=== PATIENT | female | born 1990 | race Caucasian/White ===

== ENCOUNTER 2018-11-12 20:03 | Inpatient (IN) | payer MEDICAID ==
[~2018-11-12] VITALS: Ht 154.9 cm; Wt 92.7 kg
[2018-11-12] MEDS ORDERED: PREN-93 PO (20:16)
[2018-11-12 20:17] VITALS: BP 119/60; PULSE 75; RESP 20; Ht 154.9 cm; Wt 92.7 kg
[2018-11-12] MEDS ORDERED: LACTATED RINGER'S 1,000 ML IV PRN (20:23)
--- NOTE | 2018-11-12 20:29 | TRIAGE ---
OB Triage Datetime Report Generated by CPN: 11/12/2018 20:28 Datetime: 11/12/2018 20:15 Vaginal Exam Dilatation (cms): 4.5 Membrane Status: Intact Datetime: 11/12/2018 20:06 Pain Assessment Pain Scale: 7 Pain Presence: Intermittent Pain Type: Contraction Pain Location: Abdomen; Back Pain Goal: 7 Pain Relief Measures: Comfort Measures Pain Assessment Comments: states pain is tolerable Datetime: 11/12/2018 20:00 Assessment Type: Triage Maternal Assessment Level of Consciousness: Keenly Alert, Responsive DTR's/Clonus: DTRs 2+; No Clonus Headache: Denies Blurred Vision: No Respiratory Effort: Unlabored; Regular Rhythm; Equal Expansion Breath Sounds, Left: Clear and Equal Breath Sounds, Right: Clear and Equal Nausea/Vomiting: Denies RUQ Epigastric Pain: Denies Lower Extremities Edema: Bilateral Lower Extremities Degree: 1+ Upper Extremities Edema: None Degree: None Facial Edema: None Fall Risk Assessment History of Falling: (0) No Secondary Diagnosis: (0) No Ambulatory Aid: (0) Bedrest/Nurse Assist IV Therapy: (0) No Gait: (0) Normal/Bedrest/Immobile Mental Status: (0) Oriented to Own Ability Fall Score: 0 Fall Risk Score Definition: No Risk: No action required Datetime: 11/12/2018 19:57 Time of Arrival: 11/12/2018 19:54 EGA: 38.1 Arrived By: Ambulatory Arrived From: Home Chief Complaint: UCS, SPOTTING Movement: Decreased Contractions: Regular Contractions: 5-7 MIN Rupture of Membranes: Denies Vaginal Bleeding: None Vaginal Discharge: Denies Recent Sexual Intercouse: Denies Abdominal Trauma: Not Applicable Patient Complaints: Contractions Time Provider Notified: 11/12/2018 20:23 Provider Notified: JEANE Initial Plan: ROBERTO JACKSON
[2018-11-12] MEDS ORDERED: BUTORPHANOL 2 MG INJ IV PRN (20:30)
[2018-11-12] MEDS ORDERED: OXYTOCIN 30 UNITS/LR 500 ML IV SCH ×2 (20:30)
[2018-11-12] MEDS ORDERED: CARBOPROST 250 MCG INJ IM PRN (20:30)
[2018-11-12] MEDS ORDERED: METHYLERGONOVINE 0.2 MG INJ IM PRN (20:30)
[2018-11-12] MEDS ORDERED: IBUPROFEN 600 MG TAB PO PRN (20:30)
[2018-11-12] MEDS ORDERED: OXYTOCIN 30 UNITS/LR 500 ML IV PRN (20:30)
[2018-11-12] MEDS ORDERED: LIDOCAINE 1% (MPF) 30 ML INJ INJ PRN (20:30)
[2018-11-12] MEDS ORDERED: MISOPROSTOL 200 MCG TAB PR PRN (20:30)
--- NOTE | 2018-11-12 20:34 | TRIAGE ---
OB Triage Datetime Report Generated by CPN: 11/12/2018 20:34 Datetime: 11/12/2018 20:30 Frequency: 1.5-5 Monitor Mode: External Duration (sec)2399: 70-100 Quality: Moderate Pattern: Normal: <= 5 Contractions in 10 Minutes Resting Tone [place]: Relaxed FHR Baseline Rate: 150 Monitor Mode: External US Variability: Moderate 6-25 bpm Accelerations: 15X15 Decelerations: Late Category: Category II
[2018-11-12] MEDS: LACTATED RINGER'S 1,000 ML IV SCH (20:45)
[2018-11-12] MEDS ORDERED: FENTAnyl 2MCG/ML-ROPIV 0.2% 100 ML ONE (23:54)
--- NOTE | 2018-11-13 00:09 | PREAC ---
Date/Time of Note Date/Time of Note DATE: 11/13/18 TIME: 00:07 Anesthesia Eval and Record Evaluation Time Pre-Procedure Interview DATE: 11/12/18 TIME: 23:20 Age 28 Sex female NPO: 8 hrs Preoperative diagnosis iup @ 38 wks., , labor Planned procedure martha Past Medical History Past Medical History: Includes : : (2), Para: (0), Gestational age: (38 wks.) Surgery & Anesthesia Issues No known issue Meds Anticoagulation: No Beta Doris within 24 hr: No Reason Beta Doris not given: Pt. not on B-Doris Reported Medications Vit No.124/Iron/FA ( Vitamin Tablet) 1 Each Tablet, 1 EACH PO DAILY, TAB 11/12/18 Current Medications Lactated Ringer's 1,000 ml @ 125 mls/hr Q8H IV Last administered on 11/12/18at 20:45; Admin Dose 125 MLS/HR; Start 11/12/18 at 20:23 Butorphanol Tartrate (Stadol) 2 mg Q2H PRN IV .PAIN SCALE 6-10; Start 11/12/18 at 20:30 Lidocaine (Xylocaine 1% (Mpf)) 30 ml ONCE PRN INJ .EPISIOTOMY; Start 11/12/18 at 20:30 Oxytocin/Lactated Ringer's 500 ml @ 500 mls/hr ONCE POST IV ; Start 11/12/18 at 20:30 Oxytocin/Lactated Ringer's 500 ml @ 125 mls/hr POST IV ; Start 11/12/18 at 20:30 Ibuprofen (Motrin) 600 mg ONCE PRN PO .PAIN 1-5; Start 11/12/18 at 20:30 Lactated Ringer's 1,000 ml @ 2,000 mls/hr Q30M PRN IV .ANESTHESIA Last administered on 11/12/18at 22:48; Admin Dose 2,000 MLS/HR; Start 11/12/18 at 20:23 Oxytocin/Lactated Ringer's 500 ml @ 0 mls/hr ONCE PRN IV .VAGINAL BLEEDING; Start 11/12/18 at 20:30 Methylergonovine Maleate (Methergine) 0.2 mg ONCE PRN IM .VAGINAL BLEEDING; Start 11/12/18 at 20:30 Carboprost Tromethamine (Hemabate) 250 mcg ONCE PRN IM .VAGINAL BLEEDING; Start 11/12/18 at 20:30 Misoprostol (Cytotec) 1,000 mcg ONCE PRN ND .VAGINAL BLEEDING; Start 11/12/18 at 20:30 Meds reviewed: Yes Allergies Coded Allergies: No Known Allergy (Unverified , 11/12/18) Allergies Reviewed: Yes Labs/Studies Labs Reviewed: Reviewed by anesthesiologist Result Diagram: 11/12/18 2030 Laboratory Tests 11/12/18 20:30 Blood Bank Test 11/12/18 20:30 Antibody Screen NEGATIVE Blood Type O POSITIVE Rh Immune Globulin Candidate NO test: Positive Studies: ECG (n/a), CXR (n/a) Pre-procedure Exam Last vitals Vital Signs Date Temp Pulse Resp B/P (MAP) Pulse Ox O2 O2 Flow FiO2 Time Delivery Rate 11/12/18 98.0 75 20 119/60 Room Air 20:17 (79) Airway: Adequate mouth opening, Adequate thyromental dist Mallampati: Mallampati II Teeth: Normal Lung: Normal Heart: Normal ASA Physical Status ASA physical status: 2 Emergency: E Planned Anesthetic Neuraxial: Epidural Planned Pain Management Epidural, Parenteral pain med, Local by surgeon Pre-operative Attestations Prior to commencing anesthesia and surgery, the patient was re-evaluated, there was verification of: *The patient's identity *The results of appropriate recent lab work and preoperative vital signs *The above evaluation not changing prior to induction *Anesthetic plan, risk benefits, alternative and complications discussed with patient/family; questions answered; patient/family understands, accepts and wishes to proceed. Code Clerk used DONALDO FINN MD Nov 13, 2018 00:08
[2018-11-13] MEDS ORDERED: FENTAnyl 2MCG/ML-ROPIV 0.2% 100 ML BAG EPI SCH (00:30)
[2018-11-13] MEDS ORDERED: ONDANSETRON 4 MG INJ IV PRN (00:30)
[2018-11-13] MEDS ORDERED: NALOXONE (0.4 MG/ML) INJ IV PRN (00:30)
[2018-11-13] MEDS: LACTATED RINGER'S 1,000 ML IV SCH ×2 (01:47→08:03)
--- NOTE | 2018-11-13 08:55 | HP ---
Date/Time of Note Date/Time of Note DATE: 11/13/18 TIME: 08:54 OB - History Hx of Present Free Text/Dictation term iin activve labor : 1 Para: 0 Ultrasounds: Normal mid trimester US Obstetrical Complications: None Medical Complications: None Past Family/Social History * Past Medical, Surgical, Family and Obstetric Histories reviewed from chart. OB Admission Exam Vital Signs Vital Signs Vital Signs Date Temp Pulse Resp B/P (MAP) Pulse Ox O2 O2 Flow FiO2 Time Delivery Rate 11/12/18 98.0 75 20 119/60 Room Air 20:17 (79) Physical Exam HEENT: WNL Heart: Rhythm Normal Lungs: Clear, Equal Abdomen: WNL Extremities: Normal Reflexes: Normal Cervical Dilatation: 10cm Effacement: 100% Station: +3 Membranes: Ruptured Amniotic Fluid: Thick Meconium Heart Rate: 130's Accelerations: Accelerations Present Decelerations: No Decelerations Varibility: Moderate Contractions on Admission: 6-10 Minutes Apart Intensity: Moderate Last 72 hours Lab Results CBC & BMP 11/12/18 20:30 OB Assessment/Plan Reason for admission: active labor Plan: Expectant Management KATELYN CHING MD Nov 13, 2018 08:55
--- NOTE | 2018-11-13 08:56 | LDN ---
Date/Time of Note Date/Time of Note DATE: 11/13/18 TIME: 08:55 Delivery Summary NSD W.O COMPLIACTIONS Placenta Delivered: Spontaneously Meconium: none, Thick Episiotomy: No Perineal laceration: 1 Anesthesia type: Epidural Estimated blood loss: 300 Sponge & Needle done & correct: Yes All needle counts correct: Yes Any foreign bodies felt in the: No KATELYN CHING MD Nov 13, 2018 08:56
[2018-11-13] MEDS ORDERED: OXYTOCIN 30 UNITS/LR 500 ML IV SCH (11:09)
[2018-11-13 11:10] VITALS: BP 112/77; PULSE 82; RESP 18
[2018-11-13] MEDS: LACTATED RINGER'S 1,000 ML IV* SCH ×2 (11:10→21:09)
[2018-11-13] MEDS: IBUPROFEN 800 MG TAB PO SCH ×3 (11:25→23:40)
[2018-11-13] MEDS: LANOLIN HPA 1 PKT TOP PRN (11:27)
[2018-11-13] MEDS ORDERED: WITCH HAZEL/GLYCERIN PAD PR PRN (11:30)
[2018-11-13] MEDS ORDERED: SENNA/DOCUSATE NA (8.6MG/50MG) TAB PO PRN (11:30)
[2018-11-13] MEDS ORDERED: ZOLPIDEM 5 MG TAB PO PRN (11:30)
[2018-11-13] MEDS ORDERED: MAGNESIUM HYDROXIDE 30ML CUP PO PRN (11:30)
[2018-11-13] MEDS ORDERED: MISOPROSTOL 200 MCG TAB PR PRN (11:30)
[2018-11-13] MEDS ORDERED: OXYTOCIN 30 UNITS/LR 500 ML IV PRN (11:30)
[2018-11-13] MEDS ORDERED: DIPHENHYDRAMINE 25 MG CAP PO PRN (11:30)
[2018-11-13] MEDS ORDERED: BENZOCAINE 20% 56 ML SPRAY TOP PRN (11:30)
[2018-11-13] MEDS ORDERED: ACETAMINOPHEN 325 MG TAB PO PRN (11:30)
[2018-11-13] MEDS ORDERED: CARBOPROST 250 MCG INJ IM PRN (11:30)
[2018-11-13] MEDS ORDERED: METHYLERGONOVINE 0.2 MG INJ IM PRN (11:30)
[2018-11-13 12:10] VITALS: BP 110/76; PULSE 78; RESP 20
[2018-11-13 15:19] VITALS: BP 114/68; PULSE 80; RESP 18
[2018-11-13 19:50] VITALS: BP 94/50; PULSE 61; RESP 19
[2018-11-14 03:40] VITALS: BP 86/55; PULSE 70; RESP 20
[2018-11-14] MEDS: IBUPROFEN 800 MG TAB PO SCH ×4 (05:29→23:49)
[2018-11-14 08:04] VITALS: BP 97/56; PULSE 70; RESP 18
[2018-11-14] MEDS: HYDROCODONE/APAP (5/325) TAB PO PRN (08:33)
--- NOTE | 2018-11-14 12:54 | DS ---
Date/Time of Note Date/Time of Note DATE: 11/14/18 TIME: 12:53 Discharge Summary Admission/Discharge Info Admit Date/Time Nov 12, 2018 at 20:15 Discharge Date/Time Discharge Diagnosis term Patient Condition: Stable Hospital Course unremarkable Home Meds Reported Medications Vit No.124/Iron/FA ( Vitamin Tablet) 1 Each Tablet, 1 EACH PO DAILY, TAB 11/12/18 Primary Care Provider Care Physician No Primary Pending Labs Laboratory Tests Test 11/14/18 07:10 11/14/18 08:00 Lab Scanned Report [facility] [id number] White Blood Count 15.2 10^3/ul (4.8-10.8) Red Blood Count 3.44 10^6/ul (4.20-5.40) Hemoglobin 10.5 g/dl (12.0-16.0) Hematocrit 31.8 % (37.0-47.0) Mean Corpuscular Volume 92.4 fl (82.0-101.0) Mean Corpuscular Hemoglobin 30.5 pg (29.0-33.0) Mean Corpuscular 33.0 g/dl (32.0-37.0) Hemoglobin Concent Red Cell Distribution Width 14.8 % (11.5-14.5) Platelet Count 152 10^3/UL (140-415) Mean Platelet Volume 13.3 fl (7.4-10.4) Immature Granulocytes % 0.500 % (0.001-0.429) Neutrophils % 75.7 % (39.0-77.0) Lymphocytes % 15.2 % (15.0-51.0) Monocytes % 5.9 % (0.0-11.0) Eosinophils % 2.3 % (0.0-7.0) Basophils % 0.4 % (0.0-2.0) Nucleated Red Blood Cells % 0.0 /100WBC (0.0-0.0) Immature Granulocytes # 0.080 10^3/ul (0.0-0.031) Neutrophils # 11.5 10^3/ul (1.6-7.5) Lymphocytes # 2.3 10^3/ul (0.8-2.9) Monocytes # 0.9 10^3/ul (0.3-0.9) Eosinophils # 0.4 10^3/ul (0.0-0.5) Basophils # 0.1 10^3/ul (0.0-0.1) Nucleated Red Blood Cells # 0.0 10^3/ul (0.0-0.0) KATELYN CHING MD Nov 14, 2018 12:54
[2018-11-14 16:41] VITALS: BP 90/60; PULSE 70; RESP 18
[2018-11-14 20:00] VITALS: BP 116/66; PULSE 89; RESP 18
[2018-11-14] MEDS: LANOLIN HPA 1 PKT TOP PRN (21:03)
[2018-11-15 04:00] VITALS: BP 92/55; PULSE 66; RESP 16
[2018-11-15] MEDS: HYDROCODONE/APAP (5/325) TAB PO PRN (04:37)
[2018-11-15] MEDS: IBUPROFEN 800 MG TAB PO SCH ×2 (05:49→11:56)
[2018-11-15 08:00] VITALS: BP 116/67; PULSE 81; RESP 16
[2018-11-15] MEDS ORDERED: DIPHTH/TET/ACEL PERTUSS (ADULT) 0.5 ML VIAL IM* ONE (09:00)
[2018-11-15] MEDS ORDERED: VARICELLA VACCINE LIVE/PF 1,350 UNIT/0.5 ML ML SC* ONE (09:00)
[2018-11-15] MEDS ORDERED: MEASLES,MUMPS,RUBELLA VACCINE INJ SC* ONE (09:00)
--- NOTE | 2018-11-16 15:53 | DELSUM ---
Delivery Summary A-C Datetime Report Generated by CPN: 11/16/2018 15:52 DELIVERY PERSONNEL Concrete Vibrator Operator: Vernon, Nicole MATERNAL INFORMATION Delivery Anesthesia: Epidural Medications in Delivery: pitocin Delivery QBL (ml): 300 Placenta Cultured: No Maternal Complications: Other LABOR SUMMARY EDC: 11/25/2018 00:00 No. Babies in Womb: 1 Attempted: No Labor Anesthesia: Epidural LABOR INFORMATION Reason for Induction: Not Applicable Onset of Labor: 11/12/2018 11:00 Complete Dilatation: 11/13/2018 08:04 Group B Beta Strep: Negative Antibiotics # of Doses: 0 Steroids Given: None Reason Steroids Not Administered: Not Applicable MEMBRANES Membranes Rupture Method: Artificial Rupture of Membranes: 11/13/2018 08:22 Length of Rupture (hr): 0.20 Amniotic Fluid Color: Heavy Meconium Amniotic Fluid Amount: Moderate Amniotic Fluid Odor: None STAGES OF LABOR Stage 1 hr: 21 Stage 1 min: 4 Stage 2 hr: 0 Stage 2 min: 30 Stage 3 hr: 0 Stage 3 min: 2 Total Time in Labor hr: 21 Total Time in Labor min: 36 VAGINAL DELIVERY Episiotomy: None Laceration Extension: First Degree Laceration Type: Perineal Laceration Repair: Yes Initial Vag Sponge Count: 10 Final Vag Sponge Count: 10 Initial Vag Sharps Count: 1 Final Vag Sharps Count: 2 Sponge Count Correct: Yes Sharps Count Correct: Yes BABY A INFORMATION Delivery Date/Time: 11/13/2018 08:34 Method of Delivery: Vaginal Born in Route : No : Successful Forceps: N/A Vacuum Extraction: N/A Shoulder Dystocia : N/A SHOULDER DYSTOCIA BABY A Infant Delivery Date/Time: 11/13/2018 08:34 PRESENTATION/POSITION BABY A Presentation: Cephalic Cephalic Presentation: Vertex Vertex Position: Left Occipital Anterior Breech Presentation: N/A PLACENTA INFORMATION BABY A Placenta Delivery Time : 11/13/2018 08:36 Placenta Method of Delivery: Spontaneous Placenta Status: Delivered SCORES BABY A Heart Rate 1 min: >100 bpm Resp Effort 1 min: Good Cry Reflex Irritability 1 min: Cough/Sneeze/Pulls Away Muscle Tone 1 min: Active Motion Color 1 min: Blue/Pale Resuscitation Effort 1 min: Tactile Stimulation SCORE 1 MIN: 8 Heart Rate 5 min: >100 bpm Resp Effort 5 min: Good Cry Reflex Irritability 5 min: Cough/Sneeze/Pulls Away Muscle Tone 5 min: Active Motion Color 5 min: Body [place], Extremit Blue Resuscitation Effort 5 min: Tactile Stimulation SCORE 5 MIN: 9 INFORMATION BABY A Gestational Age at Delivery: 38.2 Gestational Status: Early Term- 37- 38.6 Weeks Outcome : Liveborn, with signs of life Infant Condition : Stable Infant Sex: Female IDENTIFICATION/MEDS BABY A ID Band Number: [id number] ID Band Location: Right Leg; Left Arm Sensor Applied: Yes Sensor Number: [id number] Sensor Location : Cord Clamp Vitamin K Given : Not Given Erythromycin Given: Not Given WEIGHT/LENGTH BABY A Infant Birthweight (gm): 3020 Infant Weight (lb): 6 Weight (oz): 11 Infant Length (in): 19.00 Infant Length (cm): 48.26 CORD INFORMATION BABY A No. Cord Vessels: 3 Nuchal Cord : N/A Cord Blood Taken: Yes Infant Suction: Mouth; Nose ASSESSMENT BABY A Infant Complications: None Physical Findings at Delivery: Within Normal Limits Respirations: Tachypnea Balance Staff Staker/ALS Called : Yes Care By: Cecilia RN and RT Transferred To: Remains with Mother
--- NOTE | 2018-11-18 12:56 | PAC ---
Date/Time of Note Date/Time of Note DATE: 11/13/18 TIME: 16:00 Post-Anesthesia Notes Post-Anesthesia Note Last documented vital signs Vital Signs Date Temp Pulse Resp B/P (MAP) Pulse Ox O2 O2 Flow FiO2 Time Delivery Rate 11/15/18 98.2 81 16 116/67 Room Air 08:00 (83) Activity: WNL Respiratory function: WNL Cardiovascular function: WNL Mental status: Baseline Pain reasonably controlled: Yes Hydration appropriate: Yes Nausea/Vomiting absent: Yes DONALDO FINN MD Nov 18, 2018 12:56
== END 2018-11-15 15:20 | disposition home or self-care (01) | DRG 807 ==
LOC: OBT 20:03 → L-D 20:04 → OBT 20:15 → L-D 11-13 09:34 → PP1 11-13 11:07
PROVIDERS: ADMIT Obstetrics & Gynecology; ATTEND Obstetrics & Gynecology
PROC: 10E0XZZ Delivery of Products of Conception, External Approach (ICD-10-PCS; principal; 2018-11-13)
PROC: 0HQ9XZZ Repair Perineum Skin, External Approach (ICD-10-PCS; 2018-11-13)
DX: O77.0 Labor and delivery complicated by meconium in amniotic fluid (principal); Z37.0 Single live birth; O70.9 Perineal laceration during delivery, unspecified; Z3A.38 38 weeks gestation of pregnancy
CPT/HCPCS: 62322; 76815; 85025; 85610; 85730; 86592; 86762; 86850; 86900; 86901; 87340; 88307; 90716; 99464; G0463; J2590; J3010; J7120